=== PATIENT | female | born 1950 | race Caucasian/White ===

== ENCOUNTER 2025-02-10 12:51 | Emergency (ER) | payer BC, MEDICARE ==
[2025-02-10] MEDS ORDERED: Lidocaine 1% PF 5 ML VIAL ONE (13:06)
== END 2025-02-10 13:51 | disposition home or self-care (01) ==
LOC: BURERS 12:51
DX: S61.011A Laceration without foreign body of right thumb without damage to nail, initial encounter (principal); I10 Essential (primary) hypertension; E78.00 Pure hypercholesterolemia, unspecified; W23.1XXA Caught, crushed, jammed, or pinched between stationary objects, initial encounter; Z79.899 Other long term (current) drug therapy
CPT/HCPCS: 12002; 99283